=== PATIENT | female | born 1970 | race Caucasian/White ===

== ENCOUNTER 2016-08-19 00:17 | Observation (INO) | payer MEDICAID, OTHER ==
[~2016-08-19] VITALS: Ht 165.1 cm; Wt 95.0 kg
[~2016-08-19 00:17] MED LIST: LEVE750T8 PO; OXCA300 PO; PROZ20CA11 PO
[2016-08-19 00:22] VITALS: BP 147/94; PULSE 101; RESP 14; TEMP 98.3; O2SAT 97
[2016-08-19] MEDS ORDERED: LISI-515 PO (01:41)
[2016-08-19] MEDS ORDERED: XANA2TAB2 PO (01:41)
--- NOTE | 2016-08-19 02:28 | RADRPT ---
EXAM DATE/TIME: 08/19/2016 01:50 [facility] COMPARISON: SHUNT SERIES, October 17, 2012, 0:46. INDICATIONS : Patient states they have trouble with their vision in right eye sometimes, including blurred vision. Patient also complains of headaches. MEDICAL HISTORY : Hypertension. SURGICAL HISTORY : Hysterectomy. Lumbar shunt and Ventricular shunt. ENCOUNTER: Initial ACUITY: 2 days PAIN SCORE: 1/10 LOCATION: Shunt series FINDINGS: Shunt catheter tubing from a right frontal approach identified with tip terminating to the left of mi dline as before. It extends down along the right neck chest and upper abdomen with tip terminating to the right of the L1 vertebral body. Additional catheter tubing is seen overlying the lower abdomen a s before with the distal tip in the left lower quadrant overlying the left iliac bone.. CONCLUSION: 1. No obvious shunt discontinuity. Dionisio Stephenson MD on August 19, 2016 at 2:24 Board Certified Radiologist. This report was verified electronically.
--- NOTE | 2016-08-19 02:31 | RADRPT ---
EXAM DATE/TIME: 08/19/2016 02:09 [facility] COMPARISON: CT BRAIN W/O CONTRAST, January 22, 2015, 20:02. INDICATIONS : Cephalgia. RADIATION DOSE: 43.41 CTDIvol (mGy) MEDICAL HISTORY : Hypertension. SURGICAL HISTORY : Shunt ENCOUNTER: Initial ACUITY: 1 day PAIN SCALE: 5/10 LOCATION: cranial TECHNIQUE: Multiple contiguous axial images were obtained of the head. Using automated exposure control and adj ustment of the mA and/or kV according to patient size, radiation dose was kept as low as reasonably a chievable to obtain optimal diagnostic quality images. FINDINGS: Right frontal approach ventriculoperitoneal shunt catheter tubing is identified in tip terminates to the left of midline in the thalamic region as before. A there is no evidence of hydrocephalus, infarc t, or mass. CONCLUSION: Stable appearance of the AIRCRAFT DETAIL DRAFTSPERSON shunt catheter. No hydrocephalus. Dionisio Stephenson MD on August 19, 2016 at 2:28 Board Certified Radiologist. This report was verified electronically.
[2016-08-19] MEDS ORDERED: ACETAMINOPHEN 500 MG CPLT PO ONE (02:45)
[2016-08-19] MEDS ORDERED: METOCLOPRAMIDE HCL 10 MG/2 ML VIAL IV PUSH ONE (02:45)
[2016-08-19] MEDS ORDERED: diphenhydrAMINE HCL 50 MG/ML VIAL IV PUSH ONE (02:45)
[2016-08-19 02:50] LABS: AUTOMATED NEUTROPHIL # 4.8 TH/MM3 (1.8-7.7); BASOPHIL % 0.3 % (0.0-2.0); EOSINOPHIL # 0.1 TH/MM3 (0-0.4); EOSINOPHIL % 1.6 % (0.0-4.0); HEMATOCRIT 36.7 % (35.0-46.0); HEMO FLAGS DIFF FINAL; LYMPHOCYTE # 2.9 TH/MM3 (1.0-4.8); MEAN CELL VOLUME 88.2 FL (80.0-100.0); MEAN CORPUSCULAR HEMOGLOBIN 31.5 PG (27.0-34.0); MEAN CORPUSCULAR HGB CONC 35.7 % (32.0-36.0); MONO % 4.8 % (0.0-8.0); NEUT % 58.3 % (16.0-70.0); PLATELET COUNT 291 TH/MM3 (150-450); RED BLOOD COUNT 4.16 MIL/MM3 (4.00-5.30); RED CELL DISTRIBUTION WIDTH 12.7 % (11.6-17.2); WHITE BLOOD COUNT 8.2 TH/MM3 (4.0-11.0)
[2016-08-19 02:53] VITALS: BP 131/77; PULSE 87; RESP 16; O2SAT 98
[2016-08-19 03:02] LABS: APTT (PATIENT) 24.7 SEC (24.3-30.1); PROTHROMBIN TIME - PATIENT 10.9 SEC (9.8-11.6)
[2016-08-19 03:12] LABS: ALT (GPT) 21 U/L (10-53); ANION GAP 9 MEQ/L (5-15); AST (GOT) 12 U/L (15-37); BICARBONATE 23.6 MEQ/L (21.0-32.0); BLOOD UREA NITROGEN 13 MG/DL (7-18); CHLORIDE 108 MEQ/L (98-107); GLOMERULAR FILTRATION RATE 126 ML/MIN (>89); POTASSIUM 3.4 MEQ/L (3.5-5.1); SODIUM (NA) 141 MEQ/L (136-145)
[2016-08-19 03:15] LABS: ALKALINE PHOSPHATASE 93 U/L (45-117); TOTAL BILIRUBIN ADULT 0.2 MG/DL (0.2-1.0)
--- NOTE | 2016-08-19 03:38 | PD ---
HPI Chief Complaint: Headache Time Seen by Provider: 01:21 Travel History International Travel<30 days: No Contact w/Intl Traveler<30days: No Traveled to known affect area: No History of Present Illness HPI This is a 45 year old female who presents to the emergency department with headache and blurry vision. The patient has a history of pseudotumor cerebri for which she has a MATERIAL ATTENDANT shunt and an LP shunt. She says she's had surgery and multiple revisions of her LP shunt by Dr. Gomez in the past. She says that over the past several months she's been getting treated by having emergency physicians at her hospital do therapeutic lumbar punctures for her. Most recently in July an emergency doctor was unable to obtain her LP. Her symptoms to be getting worse since then with some moderate severity headache, associated with some nausea, blurry vision, with no weakness or numbness. PFSH Past Medical History Anemia: Yes Arthritis: No Asthma: No Autoimmune Disease: No Blood Disorders: No Anxiety: Yes Depression: Yes Heart Rhythm Problems: No Cancer: No Cardiovascular Problems: No High Cholesterol: No Chemotherapy: No Chest Pain: No Congestive Heart Failure: No COPD: No Cerebrovascular Accident: No Diabetes: No Diminished Hearing: No Endocrine: No Gastrointestinal Disorders: Yes (ISCHEMIC GI TRACT DUE TO SX ) GERD: Yes Genitourinary: Yes (FREQ UTIS/ENLARGED R KIDNEY) Headaches: Yes Hepatitis: No Hiatal Hernia: Yes Heparin Induced Thrombocytopen: No Hypertension: Yes (WITH DAVIS'S ) Immune Disorder: No Implanted Vascular Access Dvce: No Kidney Stones: Yes Musculoskeletal: Yes (L ROTATOR CUFF SX, L KNEE SX ) Neurologic: Yes (PSUEDO TUMOR CEREBRI) Psychiatric: Yes ( ) Reproductive: Yes (HYSTERECTOMY ) Respiratory: No Immunizations Current: Yes Migraines: No Myocardial Infarction: No Radiation Therapy: No Renal Failure: No Seizures: Yes Sickle Cell Disease: No Sleep Apnea: No Thyroid Disease: No Ulcer: No Tetanus Vaccination: < 5 Years Influenza Vaccination: Yes ?: Unknown Menopausal: Yes : 6 Para: 3 Miscarriage: 3 : 0 Past Surgical History Abdominal Surgery: Yes AICD: No Appendectomy: Yes Arteriovenous Shunt: No Body Medical Devices: LUMBAR SHUNT AND VENTRICULAR SHUNT PLACED IN 2008 Cardiac Surgery: No Section: Yes (X3) Cholecystectomy: No Ear Surgery: Yes (TUBES IN EARS) Endocrine Surgery: No Eye Surgery: No Genitourinary Surgery: No Gynecologic Surgery: Yes Hysterectomy: Yes Insulin Pump: No Joint Replacement: No Neurologic Surgery: Yes (LUMBAR SHUNT multiple/ MATERIAL ATTENDANT shunt) Oral Surgery: Yes Pacemaker: No Thoracic Surgery: No Tympanostomy Tube: Yes Other Surgery: Yes (HYSTERECTOMY, L KNEE SCOPE, L SHOULDER ROTATOR CUFF, SHUNTS PLACED, C SECTI) Social History Alcohol Use: No Tobacco Use: No Substance Use: No Allergies-Medications (Allergen,Severity, Reaction): Coded Allergies: Cabbage (Verified Allergy, Severe, Edema, THROAT, 08/19/16) Penicillin (Verified Allergy, Severe, RASH EDEMA, 08/19/16) Adhesives (Verified Allergy, Intermediate, Rash, 08/19/16) Lortab (Verified Allergy, Intermediate, Hives, 08/19/16) Zofran (Verified Allergy, Intermediate, Hives, 08/19/16) Toradol (Verified Adverse Reaction, Intermediate, Hives, 08/19/16) Morphine (Verified Adverse Reaction, Mild, 08/19/16) denies allergy Reported Meds & Prescriptions Reported Meds & Active Scripts Active Prozac (Fluoxetine HCl) 20 Mg Cap 20 Mg PO TID 30 Days Reported Lisinopril 20 Mg Tab 20 Mg PO DAILY Xanax (Alprazolam) 2 Mg Tab 2 Mg PO Q8H PRN Review of Systems Except as stated in HPI: all other systems reviewed are Neg Physical Exam Narrative GENERAL:Well appearing, no acute distress SKIN: Warm and dry. HEAD: Atraumatic. Normocephalic. EYES: Pupils equal and round. No injection or drainage. ENT: Moist mucous membranes NECK: Trachea midline. CARDIOVASCULAR: Regular rate and rhythm. No murmur appreciated. RESPIRATORY: Clear to auscultation. Breath sounds equal bilaterally. GASTROINTESTINAL: Abdomen soft, non-tender, nondistended. MUSCULOSKELETAL: No obvious deformities. NEUROLOGICAL: Awake and alert. No obvious cranial nerve deficits. No dysarthria or aphasia. No upper or lower extremity drift. No upper extremity ataxia. PSYCHIATRIC: Appropriate mood and affect; insight and judgment normal. Data Data Last Documented VS Vital Signs Date Time Temp Pulse Resp B/P Pulse Ox O2 Delivery O2 Flow Rate FiO2 08/19/16 02:53 87 16 131/77 98 Room Air 08/19/16 00:22 98.3 Orders Complete Blood Count With Diff (08/19/16 01:37) Comprehensive Metabolic Panel (08/19/16 01:37) Prothrombin Time / Inr (Pt) (08/19/16 01:37) Act Partial Throm Time (Ptt) (08/19/16 01:37) ^ Insert Iv (08/19/16 01:37) Ct Brain W/O Iv Contrast(Rout) (08/19/16 ) Shunt Series (08/19/16 ) Metoclopramide Inj (Reglan Inj) (08/19/16 02:45) Diphenhydramine Inj (Benadryl Inj) (08/19/16 02:45) Acetaminophen (Tylenol) (08/19/16 02:45) Admit Order (Ed Use Only) (08/19/16 03:38) Place In Observation (08/19/16 ) Vital Signs (Adult) Q4H (08/19/16 03:38) Activity Oob With Assistance (08/19/16 03:38) Diet Heart Healthy (08/19/16 Breakfast) Sodium Chloride 0.9% Flush (Ns Flush) (08/19/16 03:45) Sodium Chloride 0.9% Flush (Ns Flush) (08/19/16 09:00) Scd Bilateral/Knee High JOSE.BID (08/19/16 03:38) Naloxone Inj (Narcan Inj) (08/19/16 03:45) Labs Laboratory Tests Test 08/19/16 02:25 White Blood Count 8.2 TH/MM3 Red Blood Count 4.16 MIL/MM3 Hemoglobin 13.1 GM/DL Hematocrit 36.7 % Mean Corpuscular Volume 88.2 FL Mean Corpuscular Hemoglobin 31.5 PG Mean Corpuscular Hemoglobin 35.7 % Concent Red Cell Distribution Width 12.7 % Platelet Count 291 TH/MM3 Mean Platelet Volume 8.8 FL Neutrophils (%) (Auto) 58.3 % Lymphocytes (%) (Auto) 35.0 % Monocytes (%) (Auto) 4.8 % Eosinophils (%) (Auto) 1.6 % Basophils (%) (Auto) 0.3 % Neutrophils # (Auto) 4.8 TH/MM3 Lymphocytes # (Auto) 2.9 TH/MM3 Monocytes # (Auto) 0.4 TH/MM3 Eosinophils # (Auto) 0.1 TH/MM3 Basophils # (Auto) 0.0 TH/MM3 CBC Comment DIFF FINAL Differential Comment Prothrombin Time 10.9 SEC Prothromb Time International 1.0 RATIO Ratio Activated Partial 24.7 SEC Thromboplast Time Sodium Level 141 MEQ/L Potassium Level 3.4 MEQ/L Chloride Level 108 MEQ/L Carbon Dioxide Level 23.6 MEQ/L Anion Gap 9 MEQ/L Blood Urea Nitrogen 13 MG/DL Creatinine 0.53 MG/DL Estimat Glomerular Filtration 126 ML/MIN Rate Random Glucose 79 MG/DL Calcium Level 8.9 MG/DL Total Bilirubin 0.2 MG/DL Aspartate Amino Transf 12 U/L (AST/SGOT) Alanine Aminotransferase 21 U/L (ALT/SGPT) Alkaline Phosphatase 93 U/L Total Protein 7.5 GM/DL Albumin 4.0 GM/DL [facility] Medical Decision Making Medical Screen Exam Complete: Yes Emergency Medical Condition: Yes Interpretation(s) Afebrile, mild tachycardia, hypertensive No leukocytosis Mild hypokalemia Coags are normal Last 24 hours Impressions Shunt Study (Imaging) 08/19/16 0000 Signed Impressions: Service Date/Time: Friday, August 19, 2016 01:50 - CONCLUSION: 1. No obvious shunt discontinuity. Dionisio Stephenson MD Head CT 08/19/16 0000 Signed Impressions: Service Date/Time: Friday, August 19, 2016 02:09 - CONCLUSION: Stable appearance of the MATERIAL ATTENDANT shunt catheter. No hydrocephalus. Dionisio Stephenson MD Differential Diagnosis Pseudotumor cerebri, migraine headache, meningitis, drug seeking behavior Narrative Course This is a 45-year-old female who presents to the emergency department with persistent headaches and blurry vision that's been worsening over the past week. She has a history of pseudotumor cerebri with both the MATERIAL ATTENDANT shunt and a lumbar shunt and she requires frequent repeat lumbar punctures. She is placed on a monitored an IV was established. Labs were obtained which were reassuring. CT of the head and shunt series were obtained which were reassuring. I think patient requires observation for lumbar puncture by interventional radiology and neurosurgical consult given her worsening neurologic symptoms. Diagnosis Primary Impression: Pseudotumor cerebri syndrome Admitting Information Admitting Physician Requests: Observation Michela Meraz MD Aug 19, 2016 03:38
[2016-08-19] MEDS ORDERED: NALOXONE HCL 0.4 MG/ML AMP IV PRN (03:45)
[2016-08-19] MEDS ORDERED: SODIUM CHLORIDE 0.9% FLUSH 5 ML FLUSH FLUSH PRN (03:45)
[2016-08-19] MEDS ORDERED: ALPRAZolam 1 MG TAB PO PRN (04:00)
[2016-08-19 05:40] VITALS: BP 136/76; PULSE 78; RESP 16; O2SAT 97
[2016-08-19 07:45] VITALS: BP 128/77; PULSE 80; RESP 16; O2SAT 98
[2016-08-19] MEDS ORDERED: SODIUM CHLORIDE 0.9% FLUSH 5 ML FLUSH FLUSH SCH (09:00)
[2016-08-19] MEDS ORDERED: LISINOPRIL 20 MG TAB PO SCH (09:00)
[2016-08-19] MEDS ORDERED: PROZ20CA11 PO (09:04)
[2016-08-19] MEDS ORDERED: fentaNYL CITRATE 250 MCG/5 ML AMP ONE (09:15)
[2016-08-19] MEDS ORDERED: LORazepam 2 MG/ML VIAL ONE (09:16)
--- NOTE | 2016-08-19 10:16 | PD.RAD ---
Post Procedure Progress Note Pre Procedure Diagnosis: (1) Intractable headache (2) Pseudotumor cerebri syndrome Post Procedure Diagnosis: (1) Pseudotumor cerebri syndrome (2) Intractable headache Procedure Date: Aug 19, 2016 Supervising Radiologist: Evert Palomo Anesthesia: Local Plan of Activity Patient to Unit: Other Patient Condition: Fair Additional Comments: LP completed without difficulty. 30cc of clear fluid removed. See PACS Report for procedural detail/treatment Evert Palomo MD Aug 19, 2016 10:16
[2016-08-19 10:25] VITALS: BP 135/79; PULSE 58; RESP 16; O2SAT 96
--- NOTE | 2016-08-19 10:39 | RADRPT ---
EXAM DATE/TIME: 08/19/2016 09:49 [facility] COMPARISON: LUMBAR PUNCTURE W/OPENING PRESSURES, January 23, 2015, 18:40. INDICATIONS : Patient with pseudotumor cerebri in need of lumbar puncture. MEDICAL HISTORY : Anemia, Ischemic GI tract, GERD, Headaches, Blurred vision, HTN, Kidney stones, Seizures SURGICAL HISTORY : Lumbar shunt and ventricular shunt 2008, Hysterectomy ENCOUNTER: Initial ACUITY: 1 day PAIN SCORE: 0/10 LUMBAR PUNCTURE TIME: 0947 hours FLUORO TIME: 1 minutes ACCESS LEVEL: L3-4 OPENING PRESSURE: 27 cm of water CLOSING PRESSURE: Not requested. FLUID: 30 cc of clear CSF was collected and sent to the laboratory for analysis. SEDATION: 1.) 100 mcg fentanyl (Sublimaze) IV 2.) 2 mg lorazepam (Ativan) IV PROCEDURE : 1. Fluoroscopic guided lumbar puncture. 2. Recording of opening pressure. The risks, benefits and alternatives to the procedure were explained and verbal and written consent w as obtained. The site was prepped in sterile fashion. Full sterile technique was used, including ca p, mask, sterile gloves and gown and a large sterile sheet. Hand hygiene and 2% chlorhexidine and/or betadine/alcohol prep was utilized per protocol for cutaneous antisepsis. The skin and subcutaneous tissues were infiltrated with local anesthetic solution. With fluoroscopic guidance the lumbar thecal sac was punctured at the above level described above and the opening pressure was recorded. The above described fluid was removed without difficulty. The patient tolerated the procedure well and there were no complications. CONCLUSION: Uncomplicated fluoroscopically guided lumbar puncture with pressures as above. Evert Palomo MD on August 19, 2016 at 10:38 Board Certified Radiologist. This report was verified electronically.
[2016-08-19] MEDS ORDERED: ACETAMINOPHEN 325 MG TAB PO PRN (11:30)
[2016-08-19] MEDS ORDERED: ACETAMINOPHEN/HYDROcodone 325 MG/5 MG TAB PO PRN (11:30)
[2016-08-19 11:57] LABS: GROSS BLOOD TUBE #1 0 (0); SUPERNATE COLOR TUBE #1 CLEAR (CLEAR); SUPERNATE COLOR TUBE #2 CLEAR (CLEAR)
[2016-08-19 11:58] LABS: CSF LYMPHOCYTES 80 %; CSF NEUTROPHILS 0 %; GROSS BLOOD TUBE #2 0 (0); GROSS BLOOD TUBE #3 0 (0); GROSS BLOOD TUBE #4 0 (0); SUPERNATE COLOR TUBE #3 CLEAR (CLEAR); SUPERNATE COLOR TUBE #4 CLEAR (CLEAR); VOLUME TUBE # 4 9.5 ML; WBC TUBE #4 5 /MM3 (0-10)
[2016-08-19 11:59] LABS: CSF MONOCYTES 20 %
[2016-08-19] MEDS ORDERED: POTASSIUM CHLORIDE 10 MEQ CONTROLLED RELEASE TAB PO ONE (12:00)
[2016-08-19] MEDS ORDERED: PROM25TA5 PO (12:48)
[2016-08-19 12:53] VITALS: BP 125/89; PULSE 72; RESP 18; TEMP 97.1; O2SAT 97
[2016-08-19] MEDS ORDERED: HYDR-4107 PO (13:07)
--- NOTE | 2016-08-19 13:30 | HHI.HP ---
Dr. Rod Gomez [facility] Primary Care Physician No Primary Care Physician Admission Diagnosis headache Diagnoses: Chief Complaint: Headache Travel History International Travel<30 Days: No Contact w/Intl Traveler <30 Da: No Traveled to Known Affected Are: No History of Present Illness 44-year-old female with a past medical history of pseudotumor cerebri, HTN, anxiety who presented with headache and blurred vision. The patient states that she had been noticing right eye blurred vision with associated headache and nausea. No vomiting. She states that recently she has had to have therapeutic lumbar punctures to relieve her symptoms. She states her opening pressures recently have been in the high 20s. She has had 2 stents put in, 1 at [facility] [address] Gomez[address] She has not been following with neurosurgery. She was admitted for therapeutic LP which was performed this morning by IR. At this time her symptoms have significantly improved. No further blurred vision, headache. She has some mild chronic nausea, but wants to eat, states is controlled with promethazine which she has at home. She states that she's been ambulating with no difficulties. No fever or chills. She isn't having problems following up with the [facility]. She is asking to go home today. She is pleased when offered a referral to see Dr. Gomez again in his office. Sees her PCP in 10 days. Review of Systems Other 10 point review of systems performed and was negative except as stated in the history of present illness Past Family Social History Past Medical History Pseudotumor cerebri Hypertension Anxiety Past Surgical History Shunt placement 2 hysterectomy Left knee surgery 2 Left shoulder surgery Optic nerve sheath fenestration Reported Medications Hydrocodone-Acetaminophen 5-300 Mg Tab 1 Tab PO Q4H PRN Phenergan (Promethazine HCl) 25 Mg Tab 25 Mg PO BID Prozac (Fluoxetine HCl) 20 Mg Cap 20 Mg PO HS Lisinopril 20 Mg Tab 20 Mg PO HS Xanax (Alprazolam) 2 Mg Tab 2 Mg PO Q8H PRN Allergies: Coded Allergies: Cabbage (Verified Allergy, Severe, Edema, THROAT, 08/19/16) Penicillin (Verified Allergy, Severe, RASH EDEMA, 08/19/16) Adhesives (Verified Allergy, Intermediate, Rash, 08/19/16) Lortab (Verified Allergy, Intermediate, Hives, 08/19/16) Zofran (Verified Allergy, Intermediate, Hives, 08/19/16) Toradol (Verified Adverse Reaction, Intermediate, Hives, 08/19/16) Morphine (Verified Adverse Reaction, Mild, 08/19/16) denies allergy Active Ordered Medications Current Medications Medications (Trade) Dose Ordered Sig/Heather Route Start Time Stop Time Status Last Admin (NS Flush) 2 ml UNSCH PRN FLUSH 08/19/16 03:45 (NS Flush) 2 ml BID FLUSH 08/19/16 09:00 (Narcan Inj) 0.4 mg UNSCH PRN IV 08/19/16 03:45 (Xanax) 2 mg Q8H PRN PO 08/19/16 04:00 (Prinivil) 20 mg DAILY PO 08/19/16 09:00 08/19/16 10:36 (Tylenol) 650 mg Q4H PRN PO 08/19/16 11:30 ([place] 5-325 Mg) 1 tab Q4H PRN PO 08/19/16 11:30 08/19/16 11:41 Family History Father had cholangiocarcinoma and pancreatic cancer Mother had rheumatoid arthritis and heart problems Social History Denies any alcohol, tobacco, or illegal drug use Works at a hospital Physical Exam Vital Signs Vital Signs Date Time Temp Pulse Resp B/P Pulse Ox O2 Delivery O2 Flow Rate FiO2 08/19/16 12:53 97.1 72 18 125/89 97 08/19/16 10:25 58 16 135/79 96 Room Air 08/19/16 07:45 80 16 128/77 98 Room Air 08/19/16 05:40 78 16 136/76 97 Room Air 08/19/16 03:47 16 08/19/16 02:53 87 16 131/77 98 Room Air 08/19/16 00:45 91 16 98 Room Air 08/19/16 00:22 98.3 101 14 147/94 97 Room Air Physical Exam GENERAL: Well-developed well-nourished. In no acute distress. SKIN: Warm and dry. No lesions noted. HEENT: Normocephalic. Pupils equal and round. EOMs intact. Mucous membranes pink and moist. CARDIOVASCULAR: Regular rate and rhythm. No murmur appreciated. RESPIRATORY: No accessory muscle use. Clear to auscultation. Breath sounds equal bilaterally. GASTROINTESTINAL: Abdomen soft, non-tender, nondistended. Bowel sounds x4. MUSCULOSKELETAL: No obvious deformities. No clubbing or cyanosis. No edema. NEUROLOGICAL: Awake and alert. No focal neurological deficits. Moves upper and lower extremities spontaneously. Normal speech. Strength 5/5. PSYCHIATRIC: Appropriate mood and affect; insight and judgment normal. Laboratory Laboratory Tests Test 08/19/16 08/19/16 02:25 09:47 White Blood Count 8.2 Red Blood Count 4.16 Hemoglobin 13.1 Hematocrit 36.7 Mean Corpuscular Volume 88.2 Mean Corpuscular Hemoglobin 31.5 Mean Corpuscular Hemoglobin 35.7 Concent Red Cell Distribution Width 12.7 Platelet Count 291 Mean Platelet Volume 8.8 Neutrophils (%) (Auto) 58.3 Lymphocytes (%) (Auto) 35.0 Monocytes (%) (Auto) 4.8 Eosinophils (%) (Auto) 1.6 Basophils (%) (Auto) 0.3 Neutrophils # (Auto) 4.8 Lymphocytes # (Auto) 2.9 Monocytes # (Auto) 0.4 Eosinophils # (Auto) 0.1 Basophils # (Auto) 0.0 CBC Comment DIFF FINAL Differential Comment Prothrombin Time 10.9 Prothromb Time International 1.0 Ratio Activated Partial 24.7 Thromboplast Time Sodium Level 141 Potassium Level 3.4 Chloride Level 108 Carbon Dioxide Level 23.6 Anion Gap 9 Blood Urea Nitrogen 13 Creatinine 0.53 Estimat Glomerular Filtration 126 Rate Random Glucose 79 Calcium Level 8.9 Total Bilirubin 0.2 Aspartate Amino Transf 12 (AST/SGOT) Alanine Aminotransferase 21 (ALT/SGPT) Alkaline Phosphatase 93 Total Protein 7.5 Albumin 4.0 CSF Volume (Tube 1) 6.0 CSF Supernatant Color (tube 1) CLEAR CSF Gross Blood (Tube 1) 0 CSF WBC (Tube 1) CSF Volume (Tube 2) 6.0 CSF Supernatant Color (tube 2) CLEAR CSF Gross Blood (Tube 2) 0 CSF Volume (Tube 3) 8.0 CSF Supernatant Color (tube 3) CLEAR CSF Gross Blood (Tube 3) 0 CSF Volume (Tube 4) 9.5 CSF Supernatant Color (tube 4) CLEAR CSF Gross Blood (Tube 4) 0 CSF WBC (Tube 4) 5 CSF RBC (Tube 4) 0 CSF Neutrophils 0 CSF Lymphocytes 80 CSF Monocytes 20 Result Diagram: 08/19/1622408/19/16224 Imaging Last Impressions Shunt Study (Imaging) 08/19/16 0000 Signed Impressions: Service Date/Time: Friday, August 19, 2016 01:50 - CONCLUSION: 1. No obvious shunt discontinuity. Dionisio Stephenson MD Lumbar Puncture Fluoroscopy 08/19/16 0000 Signed Impressions: Service Date/Time: Friday, August 19, 2016 09:49 - CONCLUSION: Uncomplicated fluoroscopically guided lumbar puncture with pressures as above. Evert Palomo MD Head CT 08/19/16 0000 Signed Impressions: Service Date/Time: Friday, August 19, 2016 02:09 - CONCLUSION: Stable appearance of the CLAM SHOVEL OPERATOR shunt catheter. No hydrocephalus. Dionisio Stephenson MD Assessment and Plan Problem List: (1) Pseudotumor cerebri ICD Code: G93.2 Status: Acute Assessment and Plan 44-year-old female with a past medical history of pseudotumor cerebri, HTN, anxiety who presented with headache and blurred vision Pseudotumor cerebri: Acute on chronic. Head CT stable, no hydrocephalus. Shunt study showed no obvious shunt discontinuity. IR performed paracentesis, opening pressures 27. Symptoms improved. CSF cell count unremarkable. Continue pain control, takes Percocet at home. Wants to follow-up with neurosurgery as outpatient, referral to Dr. Gomez. Promethazine for nausea. Hypertension: Chronic, stable. Continue lisinopril. Anxiety/depression: Chronic, stable. Continue Prozac and Xanax. Disposition: Symptoms resolved. Discharge home today for outpatient follow-up with neurosurgery and PCP. Plan of care discussed with the patient who is pleased with this. Written by Dario Wick, acting as scribe for Dr. Holliday on 08/19/16 at 13:21. The documentation accurately reflects the work performed [id number] by me Dr. Holliday on 08/19/16 at 13:21. DC plan: Improved after LP DC home in fairly good condition To follow up as OP with PCP and consultants Meds per meds reconciliations Activity ad tuan as tolerated Diet: Healthy heart diet as tolerated Discussed Condition With Patient, RN Dario Wick Aug 19, 2016 13:29 Yodit Holliday MD Aug 19, 2016 13:46
[2016-08-19] MEDS ORDERED: PERC5TAB12 PO (14:48)
== END 2016-08-19 15:51 | disposition home or self-care (01) ==
LOC: NEPE 00:17 → NEDA 03:40 → NEDH 08:05 → NEPGCP 12:33
PROVIDERS: ADMIT Hospitalist; ATTEND Hospitalist
DX: G93.2 Benign intracranial hypertension (principal); I10 Essential (primary) hypertension; F41.9 Anxiety disorder, unspecified; F32.9 Major depressive disorder, single episode, unspecified; K21.9 Gastro-esophageal reflux disease without esophagitis; Z87.442 Personal history of urinary calculi; Z98.2 Presence of cerebrospinal fluid drainage device
CPT/HCPCS: 62270; 70250; 70450; 71010; 72040; 74000; 77003; 80053; 85025; 85610; 85730; 89051; 96374; 96375; 99285; G0378; J1200; J2060; J2765; J3010